=== PATIENT | male | born 1970 | race Hispanic/Latino ===

== ENCOUNTER 2019-07-16 19:18 | Emergency (ER) | payer BC ==
[~2019-07-16] VITALS: Ht 170.2 cm; Wt 95.3 kg
[~2019-07-16 19:18] MED LIST: BACTRIM DS TAB1 EACH PO; CARAFATE1 GM PO; COLACE100 MG PO; FEOSOL325 MG PO; OMEPRAZOLE40 MG PO; PANTOPRAZOLE SO40 MG PO; PEPCID20 MG PO; ZOFRAN ODT4 MG PO
[2019-07-16] MEDS ORDERED: KETOROLAC TROMETHAMINE 30 MG/ML VIAL IV STA (19:40)
[2019-07-16] MEDS ORDERED: SODIUM CHLORIDE 0.9% 1000ML 1,000 ML IV STA (19:40)
[2019-07-16 20:00] LABS: BASOPHILS % 0.4 % (0.0-1.0); EOSINOPHILS % 0.1 % (0.0-6.0); HEMATOCRIT 49.4 % (38.2-49.6); HEMOGLOBIN 17.2 g/dL (14.0-18.0); LYMPHOCYTES # (AUTO) 1.1 (1.0-3.2); LYMPHOCYTES % 9.9 % (18.0-39.1); MEAN CORPUSCULAR HEMOGLOBIN 28.5 pg (28-32); MEAN CORPUSCULAR HGB CONC 34.8 g/dL (31-35); MEAN CORPUSCULAR VOLUME 81.9 fL (81-99); MONOCYTES # (AUTO) 0.3 (0.2-0.8); MONOCYTES % 2.9 % (4.4-11.3); NEUTROPHILS # (AUTO) 9.7 (2.1-6.9); NEUTROPHILS % 86.3 % (38.7-80.0); PLATELET COUNT 199 x10e3/uL (140-360); RED BLOOD COUNT 6.03 x10e6/uL (4.3-5.7); RED CELL DISTRIBUTION WIDTH 13.1 % (11.7-14.4)
[2019-07-16 20:08] LABS: AMPHETAMINES SCREEN,URINE NEGATIVE (NEGATIVE); BENZODIAZEPINES SCREEN,URINE NEGATIVE (NEGATIVE); PHENCYCLIDINE SCREEN,URINE NEGATIVE (NEGATIVE)
[2019-07-16] MEDS ORDERED: HYDRALAZINE HCL 20 MG/ML VIAL IV ONE ×2 (20:45→21:15)
--- NOTE | 2019-07-16 20:50 | Diagnostic Imaging Report ---
EXAM: CT Abdomen and Pelvis WITHOUT contrast INDICATION: ^STONE PROTOCOL ^[id number] ^2009 ^Y COMPARISON: None. TECHNIQUE: Abdomen and pelvis were scanned utilizing a multidetector helical scanner from the lung base to the pubic symphysis without administration of IV contrast. Absence of intravenous contrast decreases sensitivity for detection of focal lesions and vascular pathology. Coronal and sagittal reformations were obtained. Routine protocol was performed. IV CONTRAST: None. ORAL CONTRAST: Water RADIATION DOSE: Total DLP: 719.7 mGy*cm Estimated effective dose: (DLP x 0.015 x size factor) mSv COMPLICATIONS: None FINDINGS: LINES and TUBES: None. LOWER THORAX: Small hiatal hernia with irregular wall thickening of the gastroesophageal junction. HEPATOBILIARY: No focal hepatic lesions. No biliary ductal dilation. GALLBLADDER: Cholecystectomy. SPLEEN: No splenomegaly. PANCREAS: No focal masses or ductal dilatation. ADRENALS: No adrenal nodules KIDNEYS/URETERS: No hydronephrosis. No cystic or solid mass lesions. 6 mm nonobstructing calcified stone in the interpolar region of the right kidney on series 3, image 80. 2 mm ossified stone in the distal left ureter at the ureterovesical junction on series 3, image 159 results in mild hydroureteronephrosis. Mild left perinephric fat stranding. Linear hyperdensity/calcification posterior to the right kidney on series 3, image 87 is indeterminate. GI TRACT: No abnormal distention, wall thickening, or evidence of bowel obstruction. Appendix is normal. PELVIC ORGANS/BLADDER: Unremarkable. LYMPH NODES: No lymphadenopathy. VESSELS: Unremarkable. PERITONEUM / RETROPERITONEUM: No free air or fluid. A 2.4 cm calcification noted in the anterior abdominal wall, anterior to the stomach on series 3, image 54 may reflect a calcified lymph node versus old mesenteric infarct. BONES: Unremarkable. SOFT TISSUES: Small bilateral fat-containing inguinal hernias. IMPRESSION: 1. Left distal ureteral 3 mm stone results in mild hydroureteronephrosis. 2. Nonobstructive right nephrolithiasis. 3. Hiatal hernia with irregular wall thickening of the gastroesophageal junction. Recommend ambulatory GI consultation for direct visualization and exclusion of a mass. Signed by: Dr. Jennifer Rust M.D. on 07/16/2019 8:47 PM
[2019-07-16 20:56] LABS: ALANINE AMINOTRANSFERASE 52 IU/L (0-55); ALBUMIN 4.2 g/dL (3.5-5.0); ALBUMIN/GLOBULIN RATIO 1.3 (0.8-2.0); ALKALINE PHOSPHATASE 126 IU/L (40-150); ANION GAP 11.4 mmol/L (8-16); BLOOD UREA NITROGEN 15 mg/dL (7-26); BUN/CREATININE RATIO 16 (6-25); CALCIUM 8.8 mg/dL (8.4-10.2); CARBON DIOXIDE 25 mmol/L (22-29); CHLORIDE 104 mmol/L (98-107); CREATININE, SERUM 0.93 mg/dL (0.72-1.25); EST GLOMERULAR FILTRATION RATE > 60 ML/MIN (60-); GLUCOSE 105 mg/dL (74-118); LIPASE 20 U/L (8-78); POTASSIUM 3.4 mmol/L (3.5-5.1); SODIUM 137 mmol/L (136-145)
[2019-07-16 21:21] VITALS: BP 161/99
== END 2019-07-16 21:35 | disposition home or self-care (01) ==
LOC: ER 19:18
DX: R10.32 Left lower quadrant pain (principal); R11.0 Nausea; N20.1 Calculus of ureter; K44.9 Diaphragmatic hernia without obstruction or gangrene; I10 Essential (primary) hypertension
CPT/HCPCS: 36415; 74176; 80053; 80307; 83690; 85025; 93005; 99284; J0360; J1885; J7030

== ENCOUNTER 2024-08-20 15:24 | Emergency (ER) | payer BC ==
[~2024-08-20] VITALS: Ht 170.2 cm; Wt 97.1 kg
[2024-08-20 15:50] VITALS: TEMP 99.5
[2024-08-20] MEDS ORDERED: SODIUM CHLORIDE FLUSH 10 ML SYR IV PRN (17:15)
[2024-08-20 17:48] LABS: BASOPHILS # (AUTO) 0.1 (0.0-0.1); BASOPHILS % 0.3 % (0.0-1.0); HEMATOCRIT 44.7 % (38.2-49.6); HEMOGLOBIN 15.3 g/dL (14.0-18.0); LYMPHOCYTES # (AUTO) 1.6 (1.0-3.2); LYMPHOCYTES % 9.5 % (18.0-39.1); MEAN CORPUSCULAR HEMOGLOBIN 29.1 pg (28-32); MEAN CORPUSCULAR HGB CONC 34.2 g/dL (31-35); MEAN CORPUSCULAR VOLUME 85.1 fL (81-99); MONOCYTES # (AUTO) 1.1 (0.2-0.8); MONOCYTES % 6.6 % (4.4-11.3); NEUTROPHILS # (AUTO) 13.4 (2.1-6.9); NEUTROPHILS % 81.5 % (38.7-80.0); PLATELET COUNT 199 x10e3/uL (140-360); RED BLOOD COUNT 5.25 x10e6/uL (4.3-5.7); RED CELL DISTRIBUTION WIDTH 13.7 % (11.7-14.4); WHITE BLOOD COUNT 16.39 x10e3/uL (4.8-10.8)
[2024-08-20] MEDS: SODIUM CHLORIDE 0.9% 1000ML 1,000 ML IV ONE (17:50)
[2024-08-20 18:00] VITALS: PULSE 71; RESP 18
[2024-08-20 18:03] LABS: ALBUMIN 4.1 g/dL (3.5-5.0); ALBUMIN/GLOBULIN RATIO 1.1 (0.8-2.0); ANION GAP 15.5 mmol/L (8-16); BILIRUBIN,TOTAL 1.2 mg/dL (0.2-1.2); CALCIUM 9.1 mg/dL (8.4-10.2); CREATININE, SERUM 1.31 mg/dL (0.72-1.25); POTASSIUM 3.5 mmol/L (3.5-5.1)
[2024-08-20 18:09] LABS: TROPONIN I 0.007 ng/mL (0-0.300)
[2024-08-20 20:59] VITALS: BP 129/85; PULSE 74; RESP 18; TEMP 98.6
[2024-08-20 21:02] VITALS: O2SAT 98
== END 2024-08-20 19:13 | disposition home or self-care (01) ==
LOC: ER 15:57
DX: R53.1 Weakness (principal); J02.8 Acute pharyngitis due to other specified organisms; R53.83 Other fatigue; D64.9 Anemia, unspecified; K21.9 Gastro-esophageal reflux disease without esophagitis; Z87.19 Personal history of other diseases of the digestive system
CPT/HCPCS: 36415; 71046; 80053; 82550; 83880; 84484; 85025; 94760; 99284; J7030